=== PATIENT | female | born 2005 | race Caucasian/White ===

== ENCOUNTER 2024-12-24 05:01 | Emergency (ER) | payer OTHER, SELFPAY ==
[2024-12-24 05:06] VITALS: BP 119/93; PULSE 120; RESP 16; TEMP 36.7; O2SAT 99; BMI 24.2
[2024-12-24 05:25] LABS: Appearance Urine Clear (Clear); Bilirubin Urine Negative (Negative); Blood Urine 2+ (Negative); Color Urine Yellow (Yellow); Glucose Urine Negative (Negative); Ketones Urine Negative (Negative); Leukocyte Esterase Urine 1+ (Negative); Nitrite Urine Negative (Negative); Protein Urine 1+ (Negative); Specific Gravity Urine <= 1.005 (1.000-1.030); Urobilinogen Urine 0.2 (0.2-1.0); pH Urine 6.5 (5.0-8.5)
--- NOTE | 2024-12-24 05:40 | ED.GENADULT ---
HPI - General Adult General Chief complaint: Urogenital Problems, Female Stated complaint: UTI Time Seen by Provider: 12/24/24 05:13 Source: patient Mode of arrival: ambulatory Limitations: no limitations History of Present Illness HPI narrative: 19-year-old female with no prior presents to the emergency department for evaluation of suprapubic discomfort, urinary urgency and frequency for the past few hours. Thought she might be running a low-grade fever and felt slightly achy. No vomiting, no back pain, no weakness or dizziness. No gynecological complaints, denies risk or STD risk. No trauma or injury, no bloody urine. No other systemic symptoms. Did not try taking any Tylenol or ibuprofen for her symptoms, did not try taking her temperature. Admits that her anxiety probably got the best of her, causing her to come to the emergency room in the wee hours. Past medical history notable for anxiety disorder and ADHD. Home meds are Ritalin and venlafaxine. Denies drug allergies. ROS is notable for the urinary symptoms only, otherwise denies other generalized, respiratory, GI, gynecological or other urinary changes. Related Data Home Medications ?Medication ?Instructions ?Recorded ?Confirmed methylphenidate HCl 20 mg tablet 20 mg PO BID 12/24/24 12/24/24 (Ritalin) venlafaxine PO 12/24/24 Previous Rx's ?Medication ?Instructions ?Recorded ciprofloxacin HCl 500 mg tablet 500 mg PO Q12H #10 tabs 12/24/24 Allergies Allergy/AdvReac Type Severity Reaction Status Date / Time No Known Drug Allergies Allergy Verified 12/24/24 05:13 [facility] Social History Smoking Status: Never smoker Do you use any of these nicotine containing products: None Second hand tobacco smoke exposure: No How often do you have a drink containing alcohol: never How often do you have six or more drinks on one occasion: Never AUDIT-C Alcohol total score: 0 Non-prescribed substance use: denies use service: No Exam Const: Vital Signs, click to edit/add: Vital Signs - 24 hr 12/24/24 05:06 Temperature 98.1 F Pulse Rate [Pulse Oximeter] 120 H Respiratory Rate 16 Blood Pressure [Ri ght Upper Arm] 119/93 H Pulse Oximetry 99 Oxygen Delivery Me thod Room Air Documenting provider has reviewed patient's vital signs: yes Common normals: no apparent distress and alert Other: Mildly anxious but good historian. Appears well nourished well hydrated, nontoxic. HENMT: Common normals: normocephalic, head/scalp atraumatic and oropharynx normal Head and scalp: normocephalic and atraumatic Face and sinus: normal facial exam Eye: Common normals: conjunctivae normal General eye: normal appearance of both eyes Conjunctiva: conjunctiva(e) normal Neck & C-Spine: General: normal visual inspection Resp: Common normals: normal respiratory effort, no use of accessory muscles and clear to auscultation bilaterally Effort & inspection: able to speak in complete sentences Auscultation: clear to auscultation bilaterally Cardio: Common normals: regular rate, regular rhythm, S1 normal heart sound, S2 normal heart sound and no murmurs Rate: regular rate Rhythm: regular rhythm Heart sounds: S1 normal and S2 normal GI: Common normals: Normal to inspection, nondistended, normoactive bowel sounds present, soft to palpation, no hepatosplenomegaly and no masses Palpation: soft and no hepatosplenomegaly Other: Mild suprapubic tenderness only : Common normals: no CVA tenderness Bladder/kidney exam: no CVA tenderness Back & Pelvis: Common normals: no CVA tenderness Neuro: Sensorium/orientation: alert Speech: speech normal Psych: Attitude: engaged Activity/motor behavior: appropriate eye contact Skin: Common normals: no rashes or lesions noted General skin exam: no rashes or lesions noted Course Course ED Course: 19-year-old female with dysuria and frequency suspicious for urinary infection. Heart rate is down to under 100 at the time of my exam was likely elevated due to anxiety at the time of triage. No hypotension, fever or other abnormality. Urinalysis is examined, positive for bladder infection. Counseled patient on findings. Do not recommend further workup, will treat with ciprofloxacin 500 b.i.d. for 5 days, 1st dose in ED. Tylenol and Pyridium will be given prior to discharge. Counseled on [id number] Tylenol, ibuprofen and Pyridium if needed. Alarm symptoms reviewed that would warrant ED presentation. Primary care follow-up if not improving in 5 days. Written instructions provided. Vital Signs Vital signs: Initial Vital Signs Temperature 98.1 F 12/24/24 05:06 Temperature Source Temporal Artery Scan 12/24/24 05:06 Pulse Rate 120 H 12/24/24 05:06 Pulse Rhythm Regular 12/24/24 05:06 Respiratory Rate 16 12/24/24 05:06 Blood Pressure 119/93 H 12/24/24 05:06 Blood Pressure Mean 101 12/24/24 05:06 Blood Pressure Position Sitting 12/24/24 05:06 Pulse Oximetry 99 12/24/24 05:06 Oxygen Delivery Method Room Air 12/24/24 05:06 Vital Signs Temperature 98.1 F 12/24/24 05:06 Pulse Rate 120 H 12/24/24 05:06 Respiratory Rate 16 12/24/24 05:06 Blood Pressure 119/93 H 12/24/24 05:06 Pulse Oximetry 99 12/24/24 05:06 Oxygen Delivery Method Room Air 12/24/24 05:06 Temperature 98.1 F 12/24/24 05:06 Pulse Rate 120 H 12/24/24 05:06 Respiratory Rate 16 12/24/24 05:06 Blood Pressure 119/93 H 12/24/24 05:06 Pulse Oximetry 99 12/24/24 05:06 Oxygen Delivery Method Room Air 12/24/24 05:06 Medical Decision Making Lab Data Lab results reviewed: Yes I reviewed the patient's lab results Lab results narrative: Suspicious for urinary infection. Labs: Lab Results 12/24/24 Range/Units 05:20 Urine Color Yellow (Yellow) Urine Appearance Clear (Clear) Urine pH 6.5 (5.0-8.5) Ur Specific [place] <= 1.005 (1.000-1.030) Urine Protein 1+ A (Negative) Urine Glucose (UA) Negative (Negative) Urine Ketones Negative (Negative) Urine Blood 2+ A (Negative) Urine Nitrite Negative (Negative) Urine Bilirubin Negative (Negative) Urine Urobilinogen 0.2 (0.2-1.0) Ur Leukocyte Esterase 1+ A (Negative) Discharge Plan Discharge Clinical Impression: Urinary tract infection Patient Disposition: Home, Self-Care Condition: Stable Instructions: Urinary Tract Infection in Women (DC) Additional Instructions: As we discussed, your urine does show signs of mild infection but there are no signs of fever, hypotension, kidney tenderness or other signs that would suggest a more severe infection. Will start you on an antibiotic, ciprofloxacin. You received your 1st dose here in the emergency department, this will count as your Tuesday morning dose. speech pathology supervisor the remainder of the antibiotics and take another dose this evening, preferably around 530. Continue taking the antibiotic twice daily until gone, 5 days. Your given a dose of Pyridium, and antispasmodic bladder pill. This is available [id number], sold under the brand-name Uristat. It will turn your urine very dark orange. Most notice tremendous relief from this medication. You may picker more at the pharmacy if your symptoms are still bothersome and take a dose up to every 8 hours. It is okay to use Tylenol 1000 mg every 6 hours and or ibuprofen 600 mg every 6 hours. While at the pharmacy, you should picker a thermometer as well. He should come to the emergency department if you have severe weakness, persistent vomiting, persistent fever over 100.4 and or other signs of major complication. If you do not feel as though your symptoms have resolved within 5 days, you should make a follow-up appointment in clinic to be re-evaluated. You may return to school and or work duties, unrestricted. Activity Level: No Restrictions Discharge Diet: Regular Prescriptions: New ciprofloxacin HCl 500 mg tablet 500 mg PO Q12H Qty: 10 0RF No Action venlafaxine PO Patient Comments: Pt states she takes 112.5 mg daily methylphenidate HCl [Ritalin] 20 mg tablet 20 mg PO BID Stand Alone Forms: [email or web address] Info Instructions
[2024-12-24 05:48] LABS: Bacteria Urine Few; RBC Urine 0-2 (0-2); Squamous Epithelial Cell Urine Few (None-Few); WBC Urine 0-2 (0-5)
[2024-12-24] MEDS: CIPROFLOXACIN 500 MG TABLET PO (06:07)
[2024-12-24] MEDS: PHENAZOPYRIDINE HCL 200 MG TABLET PO (06:07)
[2024-12-24] MEDS: ACETAMINOPHEN 500 MG TABLET 1000 MG PO (06:07)
[2024-12-24 06:12] VITALS: BP 132/78; PULSE 105; RESP 16; TEMP 36.7
== END 2024-12-24 06:13 | disposition home or self-care (01) ==
LOC: ED 06:02
PROVIDERS: Emergency Provider Family Medicine
DX: N39.0 Urinary tract infection, site not specified (principal)
CPT/HCPCS: 81001; 81003; 87086; 99283; A9270